=== PATIENT | female | born 1995 | race Caucasian/White ===

== ENCOUNTER 2021-03-31 11:37 | Emergency (ER) | payer OTHER ==
[2021-03-31 11:53] VITALS: BP 132/78
[2021-03-31] MEDS ORDERED: CHERRY SYRUP 10 ML UDC PO ONE (12:20)
[2021-03-31] MEDS ORDERED: DEXAMETHASONE 10 MG/ML VIAL PO STA (12:20)
[2021-03-31] MEDS ORDERED: IBUPROFEN 800 MG TABLET PO STA (12:20)
--- NOTE | 2021-03-31 12:22 | ED Physician Documentation ---
History of Present Illness - Stated complaint Stated Complaint: JAW/TONGUE SWELLING/FEVER - Chief complaint Chief Complaint: Heent - History obtained from History obtained from: Patient - History of Present Illness Timing: How many days ago (2) Pain level max: 6 Pain level now: 5 - Additonal information Additional information: Patient is a 26-year-old female who has had 1 Covid vaccination, scheduled to have the other vaccination this week. She states that 2 days ago started developing a sore throat, mild nasal congestion. Fevers and body aches at home. She states T-max 101. Worse with swallowing. Tylenol makes it better. No loss of taste or smell. No abdominal pain. No nausea or vomiting. No diarrhea. Denies any possibility of . No urinary symptoms. No ear pain. Review of Systems Constitutional: reports: Fever Nose: reports: Congestion Throat: reports: Sore throat Cardiac: denies: Chest pain / pressure Respiratory: denies: Cough, Wheezing GI: denies: Abdominal Pain, Nausea, Vomiting, Diarrhea Skin: denies: Rash Musculoskeletal: denies: Neck pain, Back pain Neurologic: denies: Headache PD PAST MEDICAL HISTORY - Past Medical History Past Medical History: Yes : Chronic bladder infection Musculoskeletal: Fibromyalgia - Past Surgical History Past Surgical History: Yes HEENT: Tonsil/Adenoidectomy - Present Medications Home Medications: Ambulatory Orders Medication Instructions Recorded Confirmed Benzonatate [Tessalon] 100 mg PO Q8H PRN #20 capsule 11/02/13 Cefpodoxime Proxetil [Vantin] 100 mg PO Q12H #20 tablet 03/31/21 - Allergies Allergies/Adverse Reactions: Allergies Allergy/AdvReac Type Severity Reaction Status Date / Time cephalexin monohydrate * Allergy Mild Rash Verified 03/31/21 11:53 [From Keflex] clarithromycin [From Biaxin] Allergy Mild Rash Verified 03/31/21 11:53 Penicillins Allergy Mild Rash Verified 03/31/21 11:53 Sulfa (Sulfonamide AdvReac Severe shock Verified 03/31/21 11:53 Antibiotics) - Social History Does the pt smoke?: No Smoking Status: Never smoker PD ED PE NORMAL - Vitals Vital signs reviewed: Yes - General General: Alert and oriented X 3, No acute distress, Well developed/nourished - HEENT HEENT: PERRL, Ears normal, Moist mucous membranes, Other (Posterior oropharynx is erythematous with tonsillar exudates. Normal phonation. No trismus. Uvula midline.) - Neck Neck: Supple, no meningeal sign, Other (Shotty anterior lymphadenopathy) - Cardiac Cardiac: RRR, Strong equal pulses - Respiratory Respiratory: No respiratory distress, Clear bilaterally - Abdomen Abdomen: Soft, Non tender, Non distended - Back Back: No CVA TTP - Derm Derm: Warm and dry, No rash - Extremities Extremities: No edema - Neuro Neuro: Alert and oriented X 3 - Psych Psych: Normal mood, Normal affect Results - Vitals Vitals: Vital Signs - 24 hr 03/31/21 11:49 Temperature 36.9 C Heart Rate 84 Respiratory 15 Rate Blood Pressure 132/78 H O2 Saturation 97 Oxygen O2 Source Room air - Labs Labs: Laboratory Tests 03/31/21 12:47 Group A Strep Rapid Negative PD MEDICAL DECISION MAKING - ED course Complexity details: reviewed results, re-evaluated patient, considered differential, d/w patient ED course: Patient with a physical exam and history concerning for streptococcal pharyngitis. Rapid strep is negative, but given the poor sensitivity and specificity of this test, we will treat empirically. Patient is well-appearing, nontoxic. Tolerating p.o. without difficulty. Has multiple antibiotic allergies, most resulting in mild rash. Covid test was also sent. Patient counseled regarding signs and symptoms for which I believe and urgent re- evaluation would be necessary. Patient with good understanding of and agreement to plan and is comfortable going home at this time This document was made in part using voice recognition software. While efforts are made to proofread this document, sound alike and grammatical errors may occur. Departure - Departure Disposition: 01 Home, Self Care Clinical Impression: Pharyngitis Qualifiers: Pharyngitis/tonsillitis etiology: unspecified etiology Qualified Code(s): J02.9 - Acute pharyngitis, unspecified Condition: Good Instructions: ED Strep Pharyngitis Poss Follow-Up: your,doctor in 1 week [Other] Prescriptions: Cefpodoxime Proxetil [Vantin] 100 mg PO Q12H #20 tablet Comments: Your prescription was sent to [facility] in [place]. Please take all antibiotics until gone. Return if you worsen. You do have a Covid test pending, the results of this will be available on the patient portal. Follow-up with your doctor as needed for further care. Discharge Date/Time: 03/31/21 13:07
[2021-03-31 13:06] LABS: RAPID STREP SCREEN Negative (Negative)
== END 2021-03-31 13:07 | disposition home or self-care (01) ==
LOC: ED 11:37
DX: J02.9 Acute pharyngitis, unspecified (principal); Z20.822 Contact with and (suspected) exposure to COVID-19; Z88.1 Allergy status to other antibiotic agents; Z88.0 Allergy status to penicillin; Z88.2 Allergy status to sulfonamides
CPT/HCPCS: 87070; 87077; 87430; 87635; 99283; 99284; A9270

== ENCOUNTER 2021-05-15 08:00 | Outpatient (CLI) | payer OTHER ==
[2021-05-15 19:43] LABS: BACTERIAL VAGINOSIS DNA POSITIVE (NEGATIVE); CANDIDA GLABRATA DNA NEGATIVE (NEGATIVE); CANDIDA GROUP DNA POSITIVE (NEGATIVE); CANDIDA KRUSEI DNA NEGATIVE (NEGATIVE); TRICHOMONAS VAGINALIS DNA NEGATIVE (NEGATIVE)
[2021-05-15 21:07] LABS: CHLAMYDIA TRACHOMATIS DNA NEGATIVE (NEGATIVE); NEISSERIA GONORRHOEAE DNA NEGATIVE (NEGATIVE); TRICHOMONAS VAGINALIS DNA NEGATIVE (NEGATIVE)
[2021-05-18 12:25] LABS: HSV 1 IGG TYPE SPECIFIC AB <0.90 index; HSV 2 IGG TYPE SPECIFIC AB <0.90 index
== END 2021-05-15 23:59 | disposition home or self-care (01) ==
LOC: LAB.N 08:00
PROVIDERS: ATTEND Family Medicine
DX: L98.499 Non-pressure chronic ulcer of skin of other sites with unspecified severity (principal)
CPT/HCPCS: 81599; 86695; 86696; 87140; 87255; 87491; 87591; 87661; 87801

== ENCOUNTER 2021-05-24 08:00 | Outpatient (CLI) | payer OTHER ==
[2021-05-24 21:45] LABS: BACTERIAL VAGINOSIS DNA POSITIVE (NEGATIVE); CANDIDA GLABRATA DNA NEGATIVE (NEGATIVE); CANDIDA GROUP DNA POSITIVE (NEGATIVE); CANDIDA KRUSEI DNA NEGATIVE (NEGATIVE); TRICHOMONAS VAGINALIS DNA NEGATIVE (NEGATIVE)
== END 2021-05-24 23:59 | disposition home or self-care (01) ==
LOC: LAB.N 08:00
PROVIDERS: ATTEND Physician Assistant Medical
DX: N76.0 Acute vaginitis (principal)
CPT/HCPCS: 87661; 87801

== ENCOUNTER 2021-05-27 08:35 | Outpatient (CLI) | payer OTHER ==
[2021-05-27 12:36] LABS: BILIRUBIN,URINE NEGATIVE (NEGATIVE); GLUCOSE, URINE (UA) NEGATIVE (NEGATIVE); KETONES,URINE (UA) NEGATIVE (NEGATIVE); LEUKOCYTE ESTERASE, URINE NEGATIVE (NEGATIVE); NITRITE,URINE NEGATIVE (NEGATIVE); OCCULT BLOOD,URINE TRACE-INTA (NEGATIVE); PROTEIN,URINE NEGATIVE (NEGATIVE); UROBILINOGEN,URINE 0.2 (NORMAL) E.U./dL (NORMAL)
[2021-05-27 12:44] LABS: CLARITY,URINE HAZY (CLEAR)
[2021-05-27 12:54] LABS: BACTERIA,URINE Moderate /HPF (None Seen); RBC,URINE 3 /HPF (0-5); SQUAMOUS EPITHELIAL CELL,UR MANY Squamous (<= Few)
[2021-05-27 12:55] LABS: MUCUS,URINE Moderate Strands
== END 2021-05-27 08:36 | disposition home or self-care (01) ==
LOC: LAB.N 08:35
PROVIDERS: ATTEND Physician Assistant Medical
DX: N76.0 Acute vaginitis (principal)
CPT/HCPCS: 81001

== ENCOUNTER 2021-11-11 08:00 | Outpatient (CLI) | payer OTHER ==
[2021-11-11 22:35] LABS: BACTERIAL VAGINOSIS DNA POSITIVE (NEGATIVE); CANDIDA GLABRATA DNA NEGATIVE (NEGATIVE); CANDIDA GROUP DNA POSITIVE (NEGATIVE); CANDIDA KRUSEI DNA NEGATIVE (NEGATIVE); TRICHOMONAS VAGINALIS DNA NEGATIVE (NEGATIVE)
== END 2021-11-11 08:01 | disposition home or self-care (01) ==
LOC: LAB.N 08:00
PROVIDERS: ATTEND Nurse Practitioner
DX: N89.8 Other specified noninflammatory disorders of vagina (principal)
CPT/HCPCS: 81514